=== PATIENT | male | born 1990 | race Caucasian/White ===

== ENCOUNTER 2021-09-06 11:37 | Emergency (ER) | payer MEDICAID, OTHER ==
[~2021-09-06] VITALS: Ht 177.8 cm; Wt 72.6 kg
[2021-09-06] MEDS ORDERED: BACL5TAB2 PO (13:36)
[2021-09-06 13:49] VITALS: BP 148/91
== END 2021-09-06 13:53 | disposition home or self-care (01) ==
LOC: ER 11:37
DX: S16.1XXA Strain of muscle, fascia and tendon at neck level, initial encounter (principal); V89.2XXA Person injured in unspecified motor-vehicle accident, traffic, initial encounter; Y93.89 Activity, other specified; Y92.89 Other specified places as the place of occurrence of the external cause; Y99.8 Other external cause status
CPT/HCPCS: 72125

== ENCOUNTER 2022-12-05 15:16 | Emergency (ER) | payer MEDICAID ==
[~2022-12-05] VITALS: Ht 172.7 cm; Wt 79.0 kg
[~2022-12-05 15:16] MED LIST: BACL5TAB2 PO
[2022-12-05 16:07] VITALS: BP 156/86; PULSE 130; RESP 20; O2SAT 95
== END 2022-12-05 18:40 | disposition left against medical advice (07) ==
LOC: ER 15:16 → EDBD 15:16 → ER 18:40
DX: T40.411A Poisoning by fentanyl or fentanyl analogs, accidental (unintentional), initial encounter (principal); Z53.21 Procedure and treatment not carried out due to patient leaving prior to being seen by health care provider; X58.XXXA Exposure to other specified factors, initial encounter; Y93.89 Activity, other specified; Y92.89 Other specified places as the place of occurrence of the external cause; Y99.8 Other external cause status